=== PATIENT | male | born 1980 | race Caucasian/White ===

== ENCOUNTER 2024-03-25 18:22 | Emergency (ER) | payer SELFPAY ==
[2024-03-25 18:41] VITALS: BP 184/99; PULSE 99; TEMP 37.2; O2SAT 99; BMI 71.1
[2024-03-25 19:07] LABS: Basophils % 0.5 %; Eosinophils # 0.1 10^3/uL (0.0-0.8); Eosinophils % 1.2 %; Hematocrit 39.8 % (37-53); Lymphocytes # 1.4 10^3/uL (0.8-4.8); Lymphocytes % 18.2 %; Mean Corpuscular HGB Conc 33.4 g/dL (30-55); Mean Corpuscular Hemoglobin 28.9 pg (27-33); Mean Corpuscular Volume 86.3 fl (82-101); Mean Platelet Volume 10.2 fL (7.4-10.4); Monocytes # 0.6 10^3/uL (0.2-0.9); Monocytes % 7.4 %; Neutrophils # 5.49 10^3/uL (1.8-7.7); Neutrophils % 72.2 %; Nucleated Red Blood Cells % 0 %; Platelet Count 235 10^3/cmm (157-399); Red Blood Count 4.61 10^6/uL (3.85-5.65); Red Cell Distribution Width 13.8 % (12.1-15.1)
--- NOTE | 2024-03-25 19:18 | CTR_ITS ---
PROCEDURE INFORMATION: Exam: CT Abdomen And Pelvis With Contrast Exam date and time: 03/25/2024 7:45 PM Age: 43 years old Clinical indication: Abdominal pain; Additional info: Abd pain TECHNIQUE: Imaging protocol: Computed tomography of the abdomen and pelvis with contrast. Radiation optimization: All CT scans at this facility use at least one of these dose optimization techniques: automated exposure control; mA and/or kV adjustment per patient size (includes targeted exams where dose is matched to clinical indication); or iterative reconstruction. Contrast material: OMNI 350; Contrast volume: 100 ml; Contrast route: INTRAVENOUS (IV); COMPARISON: No relevant prior studies available. RADIATION DOSE METRICS: Total DLP (mGy-cm): 1496 FINDINGS: Liver: Hepatomegaly measuring up to 24 cm. Calcified granulomas within the liver. Gallbladder and biliary ducts: Normal. No calcified stones. No ductal dilation. Pancreas: Normal. No ductal dilation. Spleen: Calcified granulomas in the spleen. Adrenal glands: Normal. No mass. Kidneys and ureters: Normal. No hydronephrosis. Stomach and bowel: Unremarkable. No obstruction. No mucosal thickening. Appendix: No evidence of appendicitis. Intraperitoneal space: Unremarkable. No free air. No significant fluid collection. Vasculature: Unremarkable. No abdominal aortic aneurysm. Lymph nodes: Unremarkable. No enlarged lymph nodes. Urinary bladder: Unremarkable as visualized. Reproductive: Unremarkable as visualized. Bones/joints: Age-indeterminate deformity of the T12 vertebral body with a proximally 50% vertebral body height loss. No retropulsion in the spinal canal. Soft tissues: Unremarkable. CT/CT abdomen pelvis w con* [id number] IMPRESSION: 1. Limited evaluation secondary to artifact. 2. Age-indeterminate deformity of the T12 vertebral body with a proximally 50% vertebral body height loss. No retropulsion in the spinal canal. 3. No acute findings within the abdomen or pelvis.
--- NOTE | 2024-03-25 19:20 | ED_ITS ---
HPI - Abdominal Pain 2 General: Chief Complaint: Abdominal Pain Stated Complaint: Lower abd pain Time Seen by Provider: 03/25/24 19:15 Source: patient Mode of arrival: ambulatory Limitations: no limitations History of Present Illness: 43-year-old male states that he has been having lower abdominal pain has been going on for weeks to months. States pain is in the lower abdomen feels like there is a mass there. Patient does have a history of obesity. Denies any fever denies any vomiting denies any diarrhea. Associated Symptoms: Denies chills, diarrhea, fever(s), nausea and vomiting Related Data Home Medications Medication Instructions Recorded Confirmed amlodipine 5 mg tablet 5 mg PO DAILY 01/18/22 01/18/22 benazepril 40 mg tablet 40 mg PO DAILY 01/18/22 01/18/22 lamotrigine 100 mg tablet 100 mg PO DAILY 01/18/22 01/18/22 Allergies Allergy/AdvReac Type Severity Reaction Status Date / Time No Known Allergies Allergy Verified 03/25/24 18:46 Review of Systems 2 Const: Denies: fever(s), chills, body aches or change in appetite ENMT: Denies: throat pain or dental pain Card: Denies: chest pain Resp: Denies: dyspnea GI: Reports: abdominal pain; Denies: nausea, vomiting or diarrhea Musc: Denies: neck pain or back pain Skin/Breast: Denies: rash Neuro: Denies: headache(s) PFSH ED 2 PFSH: Social History Smoking and tobacco/nicotine status: never used tobacco/nicotine Physical Exam 2 Const: COMMON NORMALS: no acute distress, patient oriented x3 and healthy appearing HENMT: COMMON NORMALS: normocephalic and atraumatic HEAD & SCALP: n ormocephalic and atraumatic Neck/C-Spine: COMMON NORMALS: full ROM and supple Chest: COMMONS NORMALS: normal inspection of the chest Resp: COMMON NORMALS: normal respiratory effort Cardio: COMMON NORMALS: regular rate, regular rhythm and No murmurs present (Cardio) RATE: regular rate RHYTHM: regular rhythm GI: COMMON NORMALS: Normal to inspection, nondistended, normoactive bowel sounds present, Soft to palpation and no masses PALPATION: Yes Soft to palpation OTHER: lower abd tenderness Extremity: COMMON NORMALS: normal to inspection and full ROM Neuro: COMMON NORMALS: patient oriented x3, moves all extremities and no focal motor deficits Psych: COMMON NORMALS: mental status grossly normal, Normal thought process present and cooperative THOUGHT PROCESS: Normal thought process present Skin: COMMON NORMALS: no rashes or lesions noted and no wounds GENERAL SKIN EXAM: no rashes or lesions noted Course 2 Vital Signs: Vital signs: Vital Signs Temperature 98.9 F 03/25/24 18:41 Pulse Rate 90 03/25/24 21:20 Blood Pressure 136/62 03/25/24 21:20 Pulse Oximetry 100 03/25/24 21:20 Oxygen Delivery Me thod Room Air 03/25/24 19:38 MDM - Abdominal Pain Medical Decision Making Patient presents with abdominal pain blood work imaging here is normal blood work is normal as well he is stable for discharge follow-up PCP return if worsening. Medical Records I reviewed the patient's medical records. Lab Data I reviewed the patient's lab results. 03/25/24 18:56 03/25/24 18:56 Labs/Radiology: Radiology Impressions Abdomen/Pelvis CT 03/25/24 19:18 IMPRESSION: 1. Limited evaluation secondary to artifact. 2. Age-indeterminate deformity of the T12 vertebral body with a proximally 50% vertebral body height loss. No retropulsion in the spinal canal. 3. No acute findings within the abdomen or pelvis. Laboratory Results WBC 7.60 10^3/uL (3.29-11.43) 03/25/24 18:56 RBC 4.61 10^6/uL (3.85-5.65) 03/25/24 18:56 Hgb 13.30 g/dL (11.27-16.99) 03/25/24 18:56 Hct 39.8 % (37-53) 03/25/24 18:56 MCV 86.3 fl (82-101) 03/25/24 18:56 MCH 28.9 pg (27-33) 03/25/24 18:56 MCHC 33.4 g/dL (30-55) 03/25/24 18:56 RDW 13.8 % (12.1-15.1) 03/25/24 18:56 Plt Count 235 10^3/cmm (157-399) 03/25/24 18:56 MPV 10.2 fL (7.4-10.4) 03/25/24 18:56 Neut % (Auto) 72.2 % 03/25/24 18:56 Lymph % (Auto) 18.2 % 03/25/24 18:56 [place] % (Auto) 7.4 % 03/25/24 18:56 Eos % (Auto) 1.2 % 03/25/24 18:56 Baso % (Auto) 0.5 % 03/25/24 18:56 Neut # (Auto) 5.49 10^3/uL (1.8-7.7) 03/25/24 18:56 Lymph # (Auto) 1.4 10^3/uL (0.8-4.8) 03/25/24 18:56 [place] # (Auto) 0.6 10^3/uL (0.2-0.9) 03/25/24 18:56 Eos # (Auto) 0.1 10^3/uL (0.0-0.8) 03/25/24 18:56 Baso # (Auto) 0.0 10^3/uL (0.0-0.1) 03/25/24 18:56 Nucleated RBC % (auto) 0 % 03/25/24 18:56 Nucleated RBCs # 0.0 /100WBC 03/25/24 18:56 Sodium 139 mmol/L (136-145) 03/25/24 18:56 Potassium 3.8 mmol/L (3.5-5.1) 03/25/24 18:56 Chloride 103 mmol/L (98-107) 03/25/24 18:56 Carbon Dioxide 23 mmol/L (22-29) 03/25/24 18:56 Anion Gap 16.8 (5-19) 03/25/24 18:56 BUN 12 mg/dL (6-20) 03/25/24 18:56 Creatinine 0.7 mg/dL (0.7-1.2) 03/25/24 18:56 GFR Calculation 124.3 mL/min (90-130) 03/25/24 18:56 Glucose 145 mg/dL (65-115) H 03/25/24 18:56 Calculated Osmolality 290 mOsm/kg (285-295) 03/25/24 18:56 Calcium 9.4 mg/dL (8.5-10.5) 03/25/24 18:56 Total Bilirubin 0.6 mg/dL (0.15-1.2) 03/25/24 18:56 AST 18 U/L (0-40) 03/25/24 18:56 ALT 18 U/L (0-41) 03/25/24 18:56 Alkaline Phosphatase 47 U/L (40-130) 03/25/24 18:56 Total Protein 7.1 g/dL (6.6-8.7) 03/25/24 18:56 Albumin 4.1 g/dL (3.5-5.2) 03/25/24 18:56 Globulin 3.0 g/dL (1.3-4.6) 03/25/24 18:56 Lipase 30 U/L (13-60) 03/25/24 18:56 Urine Color Yellow (Yellow) 03/25/24 19:27 Urine Appearance Clear (CLEAR) 03/25/24 19:27 Urine pH 7.0 (5-7) 03/25/24 19:27 Ur Specific [place] 1.013 (1.005-1.030) 03/25/24 19:27 Urine Protein Negative (Negative) 03/25/24 19:27 Urine Glucose (UA) Negative (Normal) 03/25/24 19:27 Urine Ketones Negative (Negative) 03/25/24 19:27 Urine Blood Negative (Negative) 03/25/24 19:27 Urine Nitrate Negative (Negative) 03/25/24 19:27 Urine Bilirubin Negative (Negative) 03/25/24 19:27 Urine Urobilinogen 1.0 mg/dL (Negative) 03/25/24 19:27 Ur Leukocyte Esterase Negative (Negative) 03/25/24 19:27 Amorphous Sediment Not Reportable 03/25/24 19:27 All radiology interpretation(s) finalized by discharge Discharge Plan Discharge Patient Disposition: Home Clinical Impression: Abdominal pain Condition: Stable Prescriptions: No Action lamotrigine 100 mg tablet 100 mg PO DAILY benazepril 40 mg tablet 40 mg PO DAILY amlodipine 5 mg tablet 5 mg PO DAILY Discharge Orders: Discharge ED (Routine); Ordered 03/25/24 Ordered By: Rudy Cardoza Referrals: Wicho Mcmullen MD [Family Provider] - 4-7 days Discharge Diet: Advance as tolerated Discharge Activity: Resume usual activity Patient Instructions: Abdominal Pain (ED) Coding Level of Care Code ED Patient Financial Services Manager for Anne-Marie Garcia
[2024-03-25 19:22] LABS: Alanine Aminotransferase 18 U/L (0-41); Albumin Level 4.1 g/dL (3.5-5.2); Alkaline Phosphatase 47 U/L (40-130); Anion Gap 16.8 (5-19); Aspartate Amino Transferase 18 U/L (0-40); Blood Urea Nitrogen 12 mg/dL (6-20); Calcium 9.4 mg/dL (8.5-10.5); Carbon Dioxide 23 mmol/L (22-29); Chloride 103 mmol/L (98-107); Glomerular Filtration Rate 124.3 mL/min (90-130); Glucose 145 mg/dL (65-115); Lipase 30 U/L (13-60); Osmolality Calculated 290 mOsm/kg (285-295); Potassium 3.8 mmol/L (3.5-5.1); Sodium 139 mmol/L (136-145); Total Bilirubin 0.6 mg/dL (0.15-1.2); Total Protein 7.1 g/dL (6.6-8.7)
[2024-03-25] MEDS: ondansetron 2 mg/ML SDV 2 mL 4 MG IVP (19:35)
[2024-03-25 19:38] VITALS: BP 170/111; PULSE 85; O2SAT 96
[2024-03-25] MEDS: iohexol 350 mg/mL 500 mL Btl (per mL) IV (19:47)
[2024-03-25 19:53] LABS: Charge for UA Resulting for Rev
[2024-03-25 19:55] LABS: Bilirubin Urine Negative (Negative); Blood Urine Negative (Negative); Glucose Urine UA Negative (Normal); Ketones Urine Negative (Negative); Leukocyte Esterase Urine Negative (Negative); Nitrate Urine Negative (Negative); Protein Urine Negative (Negative); Specific Gravity, Urine 1.013 (1.005-1.030); Urine Appearance Clear (CLEAR); Urine Color Yellow (Yellow)
[2024-03-25] MEDS: ketorolac 30 mg/mL INJ 15 MG IVP (20:17)
[2024-03-25 21:20] VITALS: BP 136/62; PULSE 90; O2SAT 100
== END 2024-03-25 21:21 | disposition home or self-care (01) ==
PROVIDERS: Emergency Provider Emergency Medicine; Family Provider Family Medicine
DX: R10.30 Lower abdominal pain, unspecified (principal)
CPT/HCPCS: 36415; 74177; 80053; 81003; 81015; 83690; 85025; 96374; 96375; 99285; J1885; J2405